=== PATIENT | female | born 1945 ===

== ENCOUNTER 2019-01-16 06:51 | Day surgery (SDC) | payer OTHER ==
[~2019-01-16 06:51] MED LIST: AVALIDE 300-121 EACH; METFORMIN HCL500 MG; VITAMINA D3
[2019-01-16] MEDS ORDERED: DOXYCYCLINE HY100 MG PO (13:33)
== END 2019-01-16 15:44 | disposition home or self-care (01) ==
LOC: CIR.AMB 06:51
DX: N84.0 Polyp of corpus uteri (principal); D25.0 Submucous leiomyoma of uterus; D26.0 Other benign neoplasm of cervix uteri

== ENCOUNTER 2022-03-16 05:45 | Day surgery (SDC) | payer OTHER ==
[~2022-03-16] VITALS: Ht 170.2 cm; Wt 85.3 kg
[~2022-03-16 05:45] MED LIST changes: +CRESTOR10 MG PO; +DOXYCYCLINE HY100 MG PO
[2022-03-16] MEDS ORDERED: MORGIDOX100 MG PO (15:00)
== END 2022-03-16 17:30 | disposition home or self-care (01) ==
LOC: CIR.AMB 05:45
PROVIDERS: ATTEND Obstetrics & Gynecology
DX: N95.0 Postmenopausal bleeding (principal); N84.0 Polyp of corpus uteri; I10 Essential (primary) hypertension; E11.9 Type 2 diabetes mellitus without complications; Z79.84 Long term (current) use of oral hypoglycemic drugs; Z88.6 Allergy status to analgesic agent